=== PATIENT | female | born 1990 | race Caucasian/White ===

== ENCOUNTER 2020-06-18 02:03 | Inpatient (IN) ==
[2020-06-18] MEDS ORDERED: LACTATED RINGERS 1,000 ML IV ONE (02:11)
[2020-06-18] MEDS ORDERED: ONDANSETRON 4 MG/2 ML VIAL IV PRN ×2 (02:11→16:49)
[2020-06-18] MEDS ORDERED: LACTATED RINGERS 500 ML IV PRN (02:11)
[2020-06-18 02:45] LABS: Basophils # 0.1 10*3/uL (0.0-0.2); Basophils % 0.7 % (0.0-0.8); Eosinophils # 0.3 10*3/uL (0.0-0.87); Eosinophils % 2.3 % (0.00-10.9); Hematocrit 39.6 VOL% (35.7-47.0); Hemoglobin 13.6 GM/DL (12.0-16.0); Immature Granulocytes % 0.8 %; Lymphocytes # 2.8 10*3/uL (1.4-4.0); Lymphocytes % 22.7 % (21.3-54.2); Mean Corpuscular HGB Conc 34.3 GM/DL (32-36); Mean Platelet Volume 10.9 FL (9.6-12.0); Monocytes % 10.5 % (1.7-12.7); Platelet Count 197 T/CUMM (130-400); Red Blood Count 4.17 MC/CUMM (3.8-5.5); White Blood Count 12.4 T/CUMM (4-12)
[2020-06-18] MEDS: BUTORPHANOL 2 MG/ML VIAL IV PRN ×2 (02:45→05:32)
[2020-06-18 02:58] LABS: Alanine Aminotransferase 15 U/L (13-56); Albumin 2.9 G/DL (3.4-5.0); Alkaline Phosphatase 163 U/L (45-117); Aspartate Amino Transferase 20 U/L (0-37); Bilirubin,Total < 0.39 MG/DL (0.2-1.0); Blood Urea Nitrogen 7 MG/DL (7-18); Calcium 9.2 MG/DL (8.5-10.1); Estimated Glom Filtration Rate 119 ML/MIN; Glucose 78 MG/DL (74-106); Total Protein 6.4 G/DL (6.4-8.3)
[2020-06-18] MEDS ORDERED: OXYTOCIN/LR 20 UNIT/1,000 ML BAG IV SCH (05:00)
[2020-06-18] MEDS: LACTATED RINGERS 1,000 ML IV SCH ×2 (05:58→09:10)
[2020-06-18] MEDS ORDERED: LACTATED RINGERS 250 ML IV PRN (06:37)
[2020-06-18] MEDS ORDERED: ePHEDrine 50 MG/ML VIAL IV PRN (06:37)
[2020-06-18] MEDS ORDERED: PROMETHAZINE 25 MG/1 ML VIAL IM ONE (06:37)
[2020-06-18] MEDS ORDERED: FAMOTIDINE 20 MG/2 ML VIAL IV ONE (06:37)
[2020-06-18] MEDS ORDERED: ONDANSETRON 4 MG/2 ML VIAL IV ONE (06:37)
[2020-06-18] MEDS ORDERED: NALOXONE 0.4 MG/ML VIAL IV PRN (06:37)
[2020-06-18] MEDS ORDERED: diphenhydrAMINE 50 MG/1 ML VIAL IV PRN ×2 (06:37)
[2020-06-18] MEDS ORDERED: hydrOXYzine HCL 25 MG/1 ML VIAL IM PRN (06:37)
[2020-06-18] MEDS ORDERED: CITRIC ACID/SODIUM CITRATE 30 ML UDCUP PO ONE (06:37)
[2020-06-18] MEDS ORDERED: METHYLERGONOVINE 0.2 MG/1 ML AMP ONE (06:43)
[2020-06-18] MEDS ORDERED: miSOPROStoL 200 MCG TABLET ONE (06:43)
[2020-06-18] MEDS ORDERED: TRANEXAMIC ACID 1,000 MG/10 ML VIAL ONE (06:43)
[2020-06-18] MEDS ORDERED: MEPERIDINE 50 MG/1 ML VIAL ONE (06:44)
[2020-06-18] MEDS ORDERED: CARBOPROST TROMETHAMINE 250 MCG/ML AMP IM ONE (06:44)
[2020-06-18] MEDS ORDERED: LIDOCAINE 1% 50 ML VIAL ONE (06:45)
[2020-06-18] MEDS ORDERED: fentaNYL 2 MCG/ROPIV 0.2% EPID 100 ML EPIDURAL SCH (07:00)
[2020-06-18] MEDS ORDERED: ceFAZolin 2,000 MG in PREMIX 1 EACH IV ONE (11:59)
[2020-06-18 13:29] LABS: Cord Venous Blood HCO3 22.1 MMOL/L; Cord Venous Blood PCO2 46.7 MMHG; Cord Venous Blood PO2 20.5
[2020-06-18] MEDS ORDERED: MORPHINE 10 MG/10 ML VIAL ONE (13:32)
[2020-06-18] MEDS ORDERED: fentaNYL 100 MCG/2 ML VIAL ONE (13:32)
[2020-06-18] MEDS ORDERED: LIDOCAINE MPF 2% /EPI 20 ML VIAL ONE (13:33)
[2020-06-18] MEDS ORDERED: ACETAMINOPHEN 1,000 MG/100 ML VIAL IV ONE (13:54)
[2020-06-18] MEDS ORDERED: PHENYLEPHRINE 10 MG/1 ML VIAL IV ONE (13:54)
[2020-06-18] MEDS ORDERED: SODIUM CHLORIDE 0.9% 100 ML IV ONE (13:59)
[2020-06-18 14:57] LABS: Bilirubin,Urine Negative (Negative); Blood, Urine Large mg/dL (Negative); Glucose,Urine (UA) Negative (Negative); Ketones,Urine 80 mg/dL (Negative); Mucus,Urine Occasional /LPF (Occasional); Nitrite,Urine Negative (Negative); Protein,Urine 100 MG/DL; RBC,Urine 810 /HPF (0-4); Squamous Epithelial Cell,Urine Occasional /HPF (0-10); Urine Appearance Slightly Hazy (Clear); Urine Color Yellow (Yellow); Urine Specific Gravity 1.017 (1.001-1.035); Urine Urobilinogen < 2.0 EU/DL (0.2-1.0); WBC,Urine 4 /HPF (0-6)
[2020-06-18] MEDS ORDERED: IBUPROFEN 800 MG TABLET PO ONE (16:09)
[2020-06-18] MEDS ORDERED: OXYTOCIN/LR 20 UNIT/1,000 ML BAG IV ONE ×2 (16:34→16:49)
[2020-06-18] MEDS ORDERED: HYDROCORTISONE 2.5% RECTAL CREAM 30 GM TUBE TOP PRN (16:49)
[2020-06-18] MEDS ORDERED: BENZOCAINE 20%/MENTHOL 0.5% SPRAY 56 GM CAN TOP PRN (16:49)
[2020-06-18] MEDS ORDERED: oxyCODONE/ACETAMINOPHEN 5-325 MG TABLET PO PRN (16:49)
[2020-06-18] MEDS ORDERED: RHO(D) IMMUNE GLOBULIN 300 MCG SYRINGE IM ONE (16:49)
[2020-06-18] MEDS ORDERED: LANOLIN 50% CREAM 0.3 OZ TUBE TOP PRN (16:49)
[2020-06-18] MEDS ORDERED: WITCH HAZEL PADS 100/JAR TOP PRN (16:49)
[2020-06-18] MEDS ORDERED: MEASLES/MUMPS/RUBELLA VACCINE 0.5 ML VIAL SUBCUT ONE (16:49)
[2020-06-18] MEDS ORDERED: ACETAMINOPHEN 325 MG TABLET PO PRN (16:49)
[2020-06-18] MEDS ORDERED: DIPH/TET/ACEL PERT BOOSTER VACCINE 0.5 ML VIAL IM ONE (16:49)
[2020-06-18] MEDS ORDERED: BISACODYL 10 MG SUPP RECTAL PRN (16:49)
[2020-06-18] MEDS: ceFAZolin 1,000 MG in SYRINGE 1 EACH IV SCH (21:01)
[2020-06-18] MEDS: DOCUSATE SODIUM 100 MG CAPSULE PO SCH (22:05)
[2020-06-19] MEDS: oxyCODONE/ACETAMINOPHEN 5-325 MG TABLET PO PRN ×4 (02:27→20:41)
[2020-06-19] MEDS: ceFAZolin 1,000 MG in SYRINGE 1 EACH IV SCH (05:06)
[2020-06-19 06:54] LABS: Basophils # 0.1 10*3/uL (0.0-0.2); Basophils % 0.5 % (0.0-0.8); Eosinophils # 0.1 10*3/uL (0.0-0.87); Eosinophils % 0.6 % (0.00-10.9); Hematocrit 30.8 VOL% (35.7-47.0); Hemoglobin 10.4 GM/DL (12.0-16.0); Immature Granulocytes % 0.6 %; Immature Granulocytes Absolute 0.11 #; Lymphocytes % 11.2 % (21.3-54.2); Mean Corpuscular HGB Conc 33.8 GM/DL (32-36); Mean Corpuscular Volume 96.9 FL (87-102); Mean Platelet Volume 10.6 FL (9.6-12.0); Monocytes % 6.6 % (1.7-12.7); Neutrophils % 80.5 % (38.7-73.9); Platelet Count 141 T/CUMM (130-400); Red Blood Count 3.18 MC/CUMM (3.8-5.5); Red Cell Distribution Width 13.3 % (9.3-17.3); White Blood Count 17.4 T/CUMM (4-12)
[2020-06-19] MEDS: DOCUSATE SODIUM 100 MG CAPSULE PO SCH ×2 (08:18→20:40)
[2020-06-19] MEDS: IBUPROFEN 800 MG TABLET PO PRN ×2 (12:33→18:23)
[2020-06-19] MEDS: MAGNESIUM HYDROXIDE SUSP 30 ML UDCUP PO SCH (20:40)
[2020-06-19] MEDS: SIMETHICONE CHEW 80 MG TABLET PO PRN (20:41)
[2020-06-20] MEDS: IBUPROFEN 800 MG TABLET PO PRN ×2 (00:09→06:05)
[2020-06-20] MEDS: SIMETHICONE CHEW 80 MG TABLET PO PRN (08:29)
[2020-06-20] MEDS: MAGNESIUM HYDROXIDE SUSP 30 ML UDCUP PO SCH (08:29)
[2020-06-20] MEDS: DOCUSATE SODIUM 100 MG CAPSULE PO SCH (08:29)
[2020-06-20 09:30] VITALS: BP 105/56
[2020-06-20] MEDS ORDERED: MEASLES/MUMPS/RUBELLA VACCINE 0.5 ML VIAL SUBCUT ONE (10:36)
== END 2020-06-20 12:35 | disposition home or self-care (01) | DRG 786 ==
LOC: N.LDOUT 02:03 → N.LD 02:06 → N.OB 17:55
PROVIDERS: ADMIT Specialist; ATTEND Specialist
PROC: LDCSECT (ICD-10-PCS; 2020-06-18 12:15)

== ENCOUNTER 2022-10-24 19:56 | Inpatient (IN) ==
[2022-10-24] MEDS ORDERED: fentaNYL 100 MCG/2 ML VIAL IV ONE (21:12)
[2022-10-24] MEDS ORDERED: LACTATED RINGERS 1,000 ML IV ONE (21:12)
[2022-10-24] MEDS ORDERED: FAMOTIDINE 20 MG/2 ML VIAL IV ONE (22:03)
[2022-10-24] MEDS ORDERED: ceFAZolin 2,000 MG/50 ML DUPLEX IV ONE (23:06)
[2022-10-24] MEDS ORDERED: METHYLERGONOVINE 0.2 MG/1 ML AMP IM PRN (23:06)
[2022-10-24] MEDS ORDERED: CARBOPROST TROMETHAMINE 250 MCG/ML AMP IM PRN (23:06)
[2022-10-24] MEDS ORDERED: TRANEXAMIC ACID 1,000 MG in SODIUM CHLORIDE 0.9% 100 ML IV PRN (23:06)
[2022-10-24] MEDS ORDERED: OXYTOCIN/LR 20 UNIT/1,000 ML BAG IV PRN (23:06)
[2022-10-24] MEDS ORDERED: miSOPROStoL 200 MCG TABLET RECTAL PRN (23:06)
[2022-10-24] MEDS ORDERED: CITRIC ACID/SODIUM CITRATE 30 ML UDCUP PO ONE (23:06)
[2022-10-24] MEDS ORDERED: buprenorphine HCL 0.3 MG/ML VIAL ONE (23:24)
[2022-10-24 23:55] LABS: Amorphous Crystals,Urine Few /HPF (Few); Glucose,Urine (UA) Negative (Negative); Ketones,Urine 15 mg/dL (Negative); Mucus,Urine Occasional /LPF (Occasional); Protein,Urine Negative (Negative); Urine Appearance Slightly Cloudy (Clear); Urine Color Yellow (Yellow); Urine pH 7.5 (4.5-8.0)
[2022-10-24] MEDS ORDERED: TISSUE ADHESIVE 1 EACH APPLICATOR TOP ONE (23:55)
[2022-10-24 23:56] LABS: Bilirubin,Urine Negative (Negative); Blood, Urine Negative (Negative); Nitrite,Urine Negative (Negative); Urine Urobilinogen 0.2 eU/dL (<2.0)
[2022-10-25 00:01] LABS: Bilirubin,Total 0.4 MG/DL (0.20-1.00); Calcium 9.3 MG/DL (8.5-10.1); Osmolality,Calculated 278.1 MOS/KG (273-304); Potassium 3.7 MMOL/L (3.5-5.1); Total Protein 6.2 G/DL (6.4-8.2)
[2022-10-25] MEDS ORDERED: ONDANSETRON 4 MG/2 ML VIAL ONE (00:30)
[2022-10-25] MEDS ORDERED: PHENYLEPHRINE 1 MG/10 ML SYRINGE IV ONE (00:30)
[2022-10-25] MEDS ORDERED: KETOROLAC 30 MG/1 ML VIAL ONE (00:34)
[2022-10-25] MEDS ORDERED: TISSUE ADHESIVE 1 EACH APPLICATOR TOP ONE (00:40)
[2022-10-25] MEDS ORDERED: ACETAMINOPHEN 325 MG TABLET PO PRN (00:52)
[2022-10-25] MEDS ORDERED: SIMETHICONE CHEW 80 MG TABLET PO PRN (00:52)
[2022-10-25] MEDS ORDERED: OXYTOCIN/LR 20 UNIT/1,000 ML BAG IV ONE (00:52)
[2022-10-25] MEDS ORDERED: MAGNESIUM HYDROXIDE SUSP 30 ML UDCUP PO PRN (00:52)
[2022-10-25] MEDS ORDERED: ONDANSETRON 4 MG/2 ML VIAL IV PRN (00:52)
[2022-10-25] MEDS ORDERED: RHO(D) IMMUNE GLOBULIN 300 MCG SYRINGE IM ONE (00:52)
[2022-10-25] MEDS ORDERED: LACTATED RINGERS 1,000 ML IV SCH (01:00)
[2022-10-25] MEDS ORDERED: diphenhydrAMINE 50 MG/1 ML VIAL IV PRN ×2 (02:50)
[2022-10-25] MEDS ORDERED: hydrOXYzine HCL 25 MG/1 ML VIAL IM PRN (02:50)
[2022-10-25] MEDS ORDERED: LACTATED RINGERS 500 ML IV PRN ×2 (02:50→04:00)
[2022-10-25] MEDS ORDERED: PROMETHAZINE 25 MG/1 ML VIAL IM PRN (02:50)
[2022-10-25] MEDS: MULTIVITAMIN (PRENATAL) TABLET PO SCH (08:45)
[2022-10-25] MEDS: DOCUSATE SODIUM 100 MG CAPSULE PO SCH ×2 (08:45→20:40)
[2022-10-25 08:54] LABS: Basophils # 0.1 10*3/uL (0.0-0.2); Basophils % 0.5 % (0.0-0.8); Eosinophils # 0.1 10*3/uL (0.0-0.87); Eosinophils % 0.9 % (0.00-10.9); Hematocrit 31.3 VOL% (35.7-47.0); Hemoglobin 10.7 GM/DL (12.0-16.0); Immature Granulocytes % 0.6 %; Immature Granulocytes Absolute 0.08 #; Lymphocytes # 1.8 10*3/uL (1.4-4.0); Lymphocytes % 14.3 % (21.3-54.2); Mean Corpuscular HGB Conc 34.2 GM/DL (32-36); Mean Corpuscular Volume 92.9 FL (87-102); Monocytes % 8.1 % (1.7-12.7); Neutrophils % 75.6 % (38.7-73.9); Platelet Count 170 T/CUMM (130-400); Red Blood Count 3.37 MC/CUMM (3.8-5.5); Red Cell Distribution Width 13.5 % (9.3-17.3)
[2022-10-25] MEDS: IBUPROFEN 800 MG TABLET PO PRN (17:11)
[2022-10-25 17:33] LABS: Basophils # 0.1 10*3/uL (0.0-0.2); Basophils % 0.6 % (0.0-0.8); Eosinophils # 0.1 10*3/uL (0.0-0.87); Eosinophils % 0.7 % (0.00-10.9); Hematocrit 38.1 VOL% (35.7-47.0); Hemoglobin 12.9 GM/DL (12.0-16.0); Immature Granulocytes % 0.8 %; Lymphocytes % 16.2 % (21.3-54.2); Mean Corpuscular HGB Conc 33.9 GM/DL (32-36); Mean Corpuscular Volume 92.9 FL (87-102); Monocytes # 1.3 10*3/uL (0.11-0.8); Monocytes % 10.5 % (1.7-12.7); Neutrophils % 71.2 % (38.7-73.9); Platelet Count 236 T/CUMM (130-400); Red Cell Distribution Width 13.4 % (9.3-17.3); White Blood Count 12.16 T/CUMM (4-12)
[2022-10-26 07:32] VITALS: BP 117/58
[2022-10-26] MEDS: DOCUSATE SODIUM 100 MG CAPSULE PO SCH (08:00)
[2022-10-26] MEDS: MULTIVITAMIN (PRENATAL) TABLET PO SCH (08:00)
[2022-10-26] MEDS: IBUPROFEN 800 MG TABLET PO PRN (08:15)
== END 2022-10-26 12:15 | disposition home or self-care (01) | DRG 788 ==
LOC: N.LDOUT 19:56 → N.LD 19:59 → N.OB 10-25 03:57
PROVIDERS: ADMIT Obstetrics & Gynecology; ATTEND Obstetrics & Gynecology
PROC: LDCSECT (ICD-10-PCS; 2022-10-24 23:50)